=== PATIENT | male | born 1975 | race Caucasian/White ===

== ENCOUNTER 2018-10-10 10:05 | Emergency (ER) | payer OTHER ==
[2018-10-10] MEDS ORDERED: Albuterol/Ipratropium 3.0-0.5 MG/3 ML Neb Soln NEB ONE (10:34)
--- NOTE | 2018-10-10 10:55 | EDM.PDOC ---
ED HPI GENERAL MEDICAL PROBLEM - General Chief Complaint: Respiratory Problem Stated Complaint: RESPIRATORY ISSUES Time Seen by Provider: 10/10/18 10:28 Source of Information: Reports: Patient History Limitations: Reports: No Limitations - History of Present Illness INITIAL COMMENTS - FREE TEXT/NARRATIVE: HISTORY AND PHYSICAL: History of present illness: Patient is a 42-year-old male here with complaint of cough. He states that's a week ago he developed cough, chest tightness, shortness of breath. He was seen at a walk-in clinic in [place] and given a steroid, inhaler, and azithromycin. He also had a breathing treatment at that time which he states made him feel much better. He states he was feeling better until yesterday symptoms came back. He denies smoking history or history of asthma. He denies significant past medical history other than history of left bundle branch block for which he has seen Dr. Briscoe and has had a workup for. Review of systems: As per history of present illness and below otherwise all systems reviewed and negative. Past medical history: As per history of present illness and as reviewed below otherwise noncontributory. Surgical history: As per history of present illness and as reviewed below otherwise noncontributory. Social history: No reported history of drug or alcohol abuse. Family history: As per history of present illness and as reviewed below otherwise noncontributory. Physical exam: General: Patient sitting comfortably in no acute distress and nontoxic appearing HEENT: Atraumatic, normocephalic, pupils reactive, negative for conjunctival pallor or scleral icterus, mucous membranes moist, throat clear, neck supple, nontender, trachea midline. No meningeal signs. Lungs: Lung sounds diminished throughout all [place], chest nontender. Heart: S1S2, regular, negative for clicks, rubs, or overt murmur. Abdomen: Soft, nondistended, nontender. Negative for masses or hepatosplenomegaly. Negative for costovertebral tenderness. Pelvis: Stable nontender. Genitourinary: Deferred. Rectal: Deferred. Extremities: Atraumatic, negative for cords or calf pain. Neurovascular unremarkable. Neuro: Awake, alert, oriented. Cranial nerves II through XII unremarkable. Cerebellum unremarkable. Motor and sensory unremarkable throughout. Exam nonfocal. Notes: EKG shows left BBB which patient is aware of and has been seen for. Diagnostics: EKG, CXR, CBC, CMP, influenza Therapeutics: DuoNeb Prescriptions: Medrol dosepak Impression: Acute bronchitis Plan: 1. Take medication as instructed. Continue ventolin inhaler as prescribed. 2. Follow up with primary care provider 3. Return to ED as needed as discussed Definitive disposition and diagnosis as appropriate pending reevaluation and review of above. - Related Data Allergies Allergy/AdvReac Type Severity Reaction Status Date / Time No Known Allergies Allergy Verified 10/10/18 10:22 Home Meds: Home Meds methylPREDNISolone [Medrol] 4 mg PO ASDIRECTED #1 tab.ds.pk 10/10/18 [Rx] Past Medical History Cardiovascular History: Reports: Other (See Below) Other Cardiovascular History: bundle branch block. - Infectious Disease History Infectious Disease History: Reports: Chicken Pox - Past Surgical History Other Musculoskeletal Surgeries/Procedures:: spine surgery, surgery on left ankle. Social & Family History - Family History Family Medical History: Noncontributory - Tobacco Use Smoking Status *Q: Never Smoker - Recreational Drug Use Recreational Drug Use: No ED ROS GENERAL - Review of Systems Review Of Systems: ROS reveals no pertinent complaints other than HPI. ED EXAM, GENERAL - Physical Exam Exam: See Below (see dictation) Course - Vital Signs Last Recorded V/S: Last Vital Signs Temp 96.5 F 10/10/18 10:23 Pulse 106 H 10/10/18 10:23 Resp 20 10/10/18 10:23 BP 127/83 10/10/18 10:23 Pulse Ox 93 L 10/10/18 10:23 - Orders/Labs/Meds Orders: Active Orders 24 hr Category Date Time Status EKG 12 Lead [EKG Documentation Completion] [RC] STAT Care 10/10/18 10:22 Active RT Aerosol Therapy [RC] ASDIRECTED Care 10/10/18 10:34 Active Labs: Laboratory Tests 10/10/18 10/10/18 Range/Units 10:40 10:40 WBC 9.88 (4.0-11.0) K/uL RBC 5.58 (4.50-5.90) M/uL Hgb 17.1 H (13.0-17.0) g/dL Hct 48.0 (38.0-50.0) % MCV 86.0 (80.0-98.0) fL MCH 30.6 (27.0-32.0) pg MCHC 35.6 (31.0-37.0) g/dL RDW Std Deviation 40.2 (28.0-62.0) fl RDW Coeff of Thais 13 (11.0-15.0) % Plt Count 245 (150-400) K/uL MPV 9.50 (7.40-12.00) fL Neut % (Auto) 54.5 (48.0-80.0) % Lymph % (Auto) 31.6 (16.0-40.0) % [place] % (Auto) 6.5 (0.0-15.0) % Eos % (Auto) 7.0 (0.0-7.0) % Baso % (Auto) 0.4 (0.0-1.5) % Neut # (Auto) 5.4 (1.4-5.7) K/uL Lymph # (Auto) 3.1 H (0.6-2.4) K/uL [place] # (Auto) 0.6 (0.0-0.8) K/uL Eos # (Auto) 0.7 (0.0-0.7) K/uL Baso # (Auto) 0.0 (0.0-0.1) K/uL Nucleated RBC % 0.0 /100WBC Nucleated RBCs # 0 K/uL Sodium 135 L (136-148) mmol/L Potassium 3.8 (3.5-5.1) mmol/L Chloride 101 (98-107) mmol/L Carbon Dioxide 24.4 (21.0-32.0) mmol/L BUN 15 (7.0-18.0) mg/dL Creatinine 0.9 (0.8-1.3) mg/dL Est Cr Clr Drug Dosing 134.75 mL/min Estimated GFR (MDRD) > 60.0 ml/min Glucose 138 H (74-106) mg/dL Calcium 9.0 (8.5-10.1) mg/dL Total Bilirubin 0.3 (0.2-1.0) mg/dL AST 27 (15-37) IU/L ALT 56 (14-63) IU/L Alkaline Phosphatase 114 (46-116) U/L Total Protein 8.1 (6.4-8.2) g/dL Albumin 3.6 (3.4-5.0) g/dL Globulin 4.5 H (2.6-4.0) g/dL Albumin/Globulin Ratio 0.8 L (0.9-1.6) Meds: Medications Discontinued Medications Generic Name Dose Route Start Last Admin Trade Name Joaquim PRN Reason Stop Dose Admin Albuterol/Ipratropium 3 ml 10/10/18 10:34 10/10/18 10:41 Duoneb 3.0-0.5 Mg/3 Ml NEB 10/10/18 10:35 3 ml ONETIME ONE Administration Departure - Departure Time of Disposition: 12:02 Disposition: Home, Self-Care 01 Condition: Good Clinical Impression: Acute bronchitis - Discharge Information Prescriptions: methylPREDNISolone [Medrol] 4 mg PO ASDIRECTED #1 tab.ds.pk Referrals: PCP,None [Primary Care Provider] - Forms: ED Department Discharge Additional Instructions: The following information is given to patients seen in the emergency department who are being discharged to home. This information is to outline your options for follow-up care. We provide all patients seen in our emergency department with a follow-up referral. The need for follow-up, as well as the timing and circumstances, are variable depending upon the specifics of your emergency department visit. If you don't have a primary care physician on staff, we will provide you with a referral. We always advise you to contact your personal physician following an emergency department visit to inform them of the circumstance of the visit and for follow-up with them and/or the need for any referrals to a consulting specialist. The emergency department will also refer you to a specialist when appropriate. This referral assures that you have the opportunity for follow-up care with a specialist. All of these measure are taken in an effort to provide you with optimal care, which includes your follow-up. Under all circumstances we always encourage you to contact your private physician who remains a resource for coordinating your care. When calling for follow-up care, please make the office aware that this follow-up is from your recent emergency room visit. If for any reason you are refused follow-up, please contact the [facility] at and asked to speak to the emergency department charge nurse. [facility] [address] [place] [address] [id number] [address] [address] 1. Take medication as instructed. Continue ventolin inhaler as prescribed. 2. Follow up with primary care provider 3. Return to ED as needed as discussed - My Orders Last 24 Hours: My Active Orders 10/10/18 10:22 EKG 12 Lead [EKG Documentation Completion] [RC] STAT 10/10/18 10:34 RT Aerosol Therapy [RC] ASDIRECTED - Assessment/Plan Last 24 Hours: My Active Orders 10/10/18 10:22 EKG 12 Lead [EKG Documentation Completion] [RC] STAT 10/10/18 10:34 RT Aerosol Therapy [RC] ASDIRECTED
[2018-10-10 11:08] LABS: CHLORIDE,CL 101 mmol/L (98-107); SODIUM,NA 135 mmol/L (136-148)
--- NOTE | 2018-10-10 11:58 | CR ---
Indication: Pain. Shortness of breath. Technique: PA and lateral views of chest were obtained. Comparison: None Findings: Heart is normal in size. The lungs are clear. No infiltrate, pleural effusion, or pneumothorax is identified. Impression: No acute cardiopulmonary process. Dictated by Hermila Jameson MD @ Oct 10 2018 11:55AM Signed by Dr. Hermila Jameson @ Oct 10 2018 11:56AM
== END 2018-10-10 12:10 | disposition home or self-care (01) ==
LOC: MW.ED 10:05
DX: J20.9 Acute bronchitis, unspecified (principal)
CPT/HCPCS: 36415; 71046; 71046-26; 80053; 85025; 87804; 93005; 94640; 99285-25; J7620-GY